=== PATIENT | female | born 1950 | race Two or more races ===

== ENCOUNTER 2018-08-31 08:32 | Outpatient (CLI) | payer OTHER ==
[~2018-08-31 08:32] MED LIST: BACTROBAN NASAL1 GM TOP; CATAFLAM50 MG PO; GLIPIZIDE; GLUCOTROL10 MG PO; HYZAAR; HYZAAR 100/25 T1 TAB PO; HYZAAR 50-12.51 EACH PO; HYZAAR 50/12.51 TAB PO; INTESTINEX1 CAP PO; JANUMET 50-1,01 EACH; JANUMET 50-1,01 EACH PO; LIPITOR; LIPITOR 10 MG PO; LIPITOR20 MG PO; METFORMIN HCL500 MG PO
== END 2018-08-31 08:49 | disposition home or self-care (01) ==
LOC: LAB 08:32
DX: E11.21 Type 2 diabetes mellitus with diabetic nephropathy (principal); E11.65 Type 2 diabetes mellitus with hyperglycemia; N39.0 Urinary tract infection, site not specified; D64.89 Other specified anemias; Z12.11 Encounter for screening for malignant neoplasm of colon; E78.00 Pure hypercholesterolemia, unspecified; E03.8 Other specified hypothyroidism

== ENCOUNTER → 2018-09-06 | Outpatient (CLI) | payer OTHER | END | disposition home or self-care (01) | LOC: RAD 08:31 | DX: Z12.31 Encounter for screening mammogram for malignant neoplasm of breast (principal); Z87.898 Personal history of other specified conditions; N64.89 Other specified disorders of breast; J45.998 Other asthma ==

== ENCOUNTER → 2019-05-04 07:36 | Outpatient (CLI) | payer OTHER | END | disposition home or self-care (01) | LOC: LAB 07:36 | DX: E03.8 Other specified hypothyroidism (principal); E78.00 Pure hypercholesterolemia, unspecified; D50.8 Other iron deficiency anemias; E55.9 Vitamin D deficiency, unspecified; D68.8 Other specified coagulation defects; E11.9 Type 2 diabetes mellitus without complications; N39.0 Urinary tract infection, site not specified ==

== ENCOUNTER → 2019-05-04 | Outpatient (CLI) | payer OTHER | END | disposition home or self-care (01) | LOC: MAMO-SONO 08:37 | DX: N63.10 Unspecified lump in the right breast, unspecified quadrant (principal); N63.20 Unspecified lump in the left breast, unspecified quadrant; Z12.31 Encounter for screening mammogram for malignant neoplasm of breast; Z87.898 Personal history of other specified conditions ==

== ENCOUNTER 2020-05-26 08:36 | Outpatient (CLI) | payer OTHER | END 2020-05-26 08:40 | disposition home or self-care (01) | LOC: LAB 08:36 | PROVIDERS: ATTEND Obstetrics & Gynecology | DX: N30.00 Acute cystitis without hematuria (principal) ==

== ENCOUNTER → 2020-08-07 15:00 | Outpatient (CLI) | payer OTHER | END | disposition home or self-care (01) | LOC: PPH VACUNA 15:00 | PROVIDERS: ATTEND Emergency Medicine Pediatric Emergency Medicine | DX: Z23 Encounter for immunization (principal) ==

== ENCOUNTER 2020-09-08 07:54 | Outpatient (CLI) | payer OTHER | END 2020-09-08 07:58 | disposition home or self-care (01) | LOC: LAB 07:54 | PROVIDERS: ATTEND Specialist | DX: E11.65 Type 2 diabetes mellitus with hyperglycemia (principal); N39.0 Urinary tract infection, site not specified; D64.89 Other specified anemias; Z12.11 Encounter for screening for malignant neoplasm of colon; E78.2 Mixed hyperlipidemia; E03.8 Other specified hypothyroidism; E11.21 Type 2 diabetes mellitus with diabetic nephropathy ==